=== PATIENT | male | born 1980 | race Caucasian/White ===

== ENCOUNTER 2020-05-01 07:20 | Outpatient (REF) | payer BC, SELFPAY | END 2020-05-01 07:21 | disposition home or self-care (01) | LOC: HO.LAB 07:20 | PROVIDERS: Visit Provider Internal Medicine | DX: Z20.822 Contact with and (suspected) exposure to COVID-19 (principal) | CPT/HCPCS: 36415; C9803; U0003 ==

== ENCOUNTER 2020-05-20 07:12 | Outpatient (REF) | payer BC, SELFPAY | END 2020-05-20 07:13 | disposition home or self-care (01) | LOC: HO.LAB 07:12 | PROVIDERS: PCP Family Medicine; Visit Provider Internal Medicine | DX: Z20.822 Contact with and (suspected) exposure to COVID-19 (principal) | CPT/HCPCS: 36415; C9803; U0003; U0005 ==

== ENCOUNTER 2023-03-17 09:23 | Outpatient (AMB) | payer OTHER, BC, SELFPAY ==
--- NOTE | 2023-03-17 09:26 | AM.OFFWIN_ITS ---
Intake Vital Signs 03/17/23 09:27 Height 5 ft 9 in Weight 169 lb BMI 25.0 BP 122/80 Blood Pressure Location Rt brachial Position Sitting Pulse 78 Pulse Source Pulse Oximeter Temp 97.8 F Temp Source Temporal Artery Scan Pulse Oximetry (%) 98 Intake Visit Reasons: EP WC Fell RT side/Shoulder/Elbow/back Intake Note: pt is here for c.o right side shoulder pain, elbow pain due to fall at work yesterday Patient Tobacco Use Status: Never used Tobacco Allergies No Known Allergies Allergy (Verified 03/17/23 09:29) Do you need a note to return to daycare/school/sports/work: Yes HPI HPI Comments History of Present Illness Details 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 PFSH Social History Patient Tobacco Use Status: Never used Tobacco Review of Systems Const Reports body aches, Denies chills and Denies fever(s) Eyes Denies change in vision ENT Denies dizziness and Denies neck pain Card Denies chest pain, Denies chest pain with activity and Denies dyspnea Resp Denies cough and Denies dyspnea GI Denies abdominal pain Musc Denies abnormal gait, Reports back pain (upper back/R shoulder), Reports myalgias, Reports joint swelling (R elbow), Denies neck pain, Denies numbness and Denies tingling Skin/Breast Reports change in pigmentation (Bruise R gluteal region. Abrasion R posterior ribs and R elbow) and Reports unusual bruising (Bruise to R elbow) Neuro Denies abnormal gait, Denies confusion, Denies dizziness, Denies numbness, Denies tingling and Reports other (No HT or LOC) Psych Denies confusion Physical Exam Vital Signs: Last Vital Signs Temp 97.8 F 03/17/23 09:27 Pulse 78 03/17/23 09:27 BP 122/80 03/17/23 09:27 Pulse Ox 98 03/17/23 09:27 BMI result Body Mass Index 25.0 General: Non-toxic, NAD. Speaking full sentences. Skin: Warm dry throughout. R glute lateral aspect has raised approx 3cm x 2cm blue/green hematoma. Slightly tender to palpation. No induration. R elbow + scabbed abrasion without surrounding erythema, bleeding or discharge. R posterior back along rib approx 10 he has small abrasion without ecchymosis, erythema discharge or bleeding Eye: EOMI Neck: No c-spine tenderness. + tenderness to palpation R trapezius muscle Respiratory: CTA bilaterally. No wheezes, rales or rhonchi Cardiac: RRR. No murmur MSK: No bon tenderness to palpation midline spine. + R trapezius tenderness to palpation. No bony tenderness R clavicle, shoulder or proximal humerus, R wrist or R rip. + tenderness to palpation R olecranon with full ROM R elbow intact. Neurology: A/O. No aphasia or facial droop. Gait without abnormality Psych: Good mood and affect Const General: No confusion Orientation/consciousness: No confusion Neuro General: No confusion Assessment & Plan Assessment & Plan (1) Elbow contusion: Code(s): S50.00XA - Contusion of unspecified elbow, initial encounter Qualifiers: Encounter type: initial encounter Laterality: right Qualified Code(s): S50.01XA - Contusion of right elbow, initial encounter Plan Patient seen and evaluated Lungs CTA and no rib tenderness or step off palpated Vital stable. Xray R elbow ordered No sign of cellulitis on exam I viewed xray as negative.Discussed results with pt. He will use ice TID x 20 min to R elbow Rest, tylenol/motrin prn F/u with workman comp Pt expressed verbal understanding at time of d/c and all questions answered Orders: Orders XR elbow RT min 3V Today S50.00XA - Contusion of unspecified elbow, initial encounter Coding Level of Care Code Est Pt Level 3 (97105) Diagnoses Contusion of right elbow, initial encounter S50.01XA Encounter type: initial encounter Laterality: right
[2023-03-17 09:27] VITALS: BP 122/80; PULSE 78; TEMP 36.6; O2SAT 98; BMI 25.0
== END 2023-03-17 10:23 | disposition home or self-care (01) ==
PROVIDERS: PCP Family Medicine; Visit Provider Physician Assistant
DX: S50.01XA Contusion of right elbow, initial encounter (principal)
CPT/HCPCS: 99213

== ENCOUNTER 2023-03-17 09:45 | Outpatient (REF) | payer OTHER, BC, SELFPAY ==
--- NOTE | ~2023-03-17 | XR_ITS ---
EXAMINATION: XR ELBOW, RIGHT CLINICAL INFORMATION: Contusion of right elbow COMPARISON: None available. TECHNIQUE: AP, lateral, and oblique views of the right elbow. FINDINGS: The bones and soft tissues are normal. No fracture or joint effusion. Alignment is anatomic. Joint spaces are maintained. XR/XR elbow RT min 3V IMPRESSION: Normal right elbow.
== END 2023-03-17 09:46 | disposition home or self-care (01) ==
LOC: HO.HMGCX 09:45
PROVIDERS: Visit Provider Physician Assistant
DX: S50.01XA Contusion of right elbow, initial encounter (principal)
CPT/HCPCS: 73080

== ENCOUNTER 2023-05-07 11:48 | Outpatient (AMB) | payer OTHER, BC, SELFPAY ==
[2023-05-07 13:18] VITALS: BP 120/80; PULSE 74; O2SAT 98; BMI 25.2
--- NOTE | 2023-05-07 13:18 | AM.OFFWIN_ITS ---
Intake Vital Signs 05/07/23 13:18 Height 5 ft 9 in Weight 171 lb BMI 25.2 BP 120/80 Blood Pressure Location Lt brachial Position Sitting Pulse 74 Pulse Source Pulse Oximeter Pulse Oximetry (%) 98 Oxygen Delivery Method Room Air Intake Visit Reasons: EP Clearance for work [phone] Intake Note: pt is here today for clearance for work Patient Tobacco Use Status: Never used Tobacco Allergies No Known Allergies Allergy (Verified 05/07/23 13:27) Do you need a note to return to daycare/school/sports/work: No HPI HPI Comments History of Present Illness Details This is a 43-year-old male who presented to the walk-in clinic requesting work clearance. He was evaluated here on 03/17/2023 and he was diagnosed with a contusion of his right elbow. Patient was placed on light duty at that time. Patient presenting today requesting clearance to return to full duty. He has no persistent right elbow pain, swelling, or ecchymosis. He has full range of motion of his right elbow. [facility] Social History Patient Tobacco Use Status: Never used Tobacco Review of Systems Const All systems reviewed & are unremarkable except as noted in HPI and below Reports no additional complaints Eyes Reports no additional complaints ENT Reports no additional complaints Card Reports no additional complaints Resp Reports no additional complaints GI Reports no additional complaints Reports no additional complaints Musc Reports no additional complaints Skin/Breast Reports system reviewed and no additional complaints, except as documented Neuro Reports no additional complaints Psych Reports no additional complaints Endo Reports no additional complaints Dar/Lymph Reports no additional complaints Aller/Immun Reports no additional complaints Physical Exam Vital Signs: Last Vital Signs Pulse 74 05/07/23 13:18 BP 120/80 05/07/23 13:18 Pulse Ox 98 05/07/23 13:18 Oxygen Delivery Method Room Air 05/07/23 13:18 BMI result Body Mass Index 25.2 Const Other: Vital signs reviewed. Constitutional: Non-toxic appearing. No acute distress. Well-developed and well-nourished. HEENT: Normocephalic and atraumatic. Skin: Warm and dry. No rashes or lesions noted. Neck: Full and painless range of motion. No cervical lymphadenopathy. Cardio: Regular rate and rhythm. No murmurs, gallops, or rubs. No lower extremity edema. No JVD. Pulmonary: No respiratory distress. No accessory muscle usage. Clear to auscultation bilaterally without wheezing, crackles, or rhonchi. Gastrointestinal: Soft, nontender, and nondistended in all 4 quadrants. Normoactive bowel sounds in all 4 quadrants. Genitourinary: No CVA tenderness. Musculoskeletal: Normal range of motion in joints throughout the body. No deformity or other signs of injury. Full and painless range of motion of the right elbow. No swelling, erythema, ecchymosis, or tenderness to palpation of the right elbow. Neuro: Alert and oriented x4. Cranial nerves 2-12 grossly intact. No focal deficits appreciated. Psych: Normal mood and affect. Assessment & Plan Assessment & Plan (1) Elbow contusion: Code(s): S50.00XA - Contusion of unspecified elbow, initial encounter Qualifiers: Encounter type: initial encounter Laterality: right Qualified Code(s): S50.01XA - Contusion of right elbow, initial encounter Plan: This is a 43-year-old male who was diagnosed with an elbow contusion in 02/2023 and placed on light duty at work who presented to the walk-in clinic today requesting clearance for full duty at work. On physical examination, the patient has full and painless range of motion of his right elbow and he has no swelling, tenderness to palpation, ecchymosis, or erythema of the right elbow. The patient was given a work note that he can perform his full work duties. Patient was advised to follow-up here for any worsening or persistent symptoms. The patient verbalizes understanding and he is very appreciative of our help. Coding Level of Care Code Est Pt Level 3 (69880) Diagnoses Contusion of right elbow, initial encounter S50.01XA Encounter type: initial encounter Laterality: right
== END 2023-05-07 14:15 | disposition home or self-care (01) ==
PROVIDERS: PCP Family Medicine; Visit Provider Physician Assistant Medical
DX: S50.01XA Contusion of right elbow, initial encounter (principal)
CPT/HCPCS: 99213

== ENCOUNTER 2024-05-05 13:31 | Outpatient (AMB) | payer OTHER, BC, SELFPAY ==
--- NOTE | 2024-05-05 14:16 | MHC.PC.OV ---
Vital Signs 05/05/24 14:26 Height 5 ft 9 in Weight 186 lb 8 oz BMI 27.5 BP 120/60 Blood Pressure Location Rt brachial Position Sitting Respiration 16 Pulse 98 Pulse Source Pulse Oximeter Temp 98.1 F Temp Source Oral Pulse Oximetry (%) 98 Oxygen Delivery Method Room Air Intake Visit Reasons: Gasto issues Intake Note: establish care Allergies No Known Allergies Allergy (Verified 05/05/24 14:18) Medication List - Last Reconciled 05/05/24 by Eben Ross MD No Known Home Meds Tobacco use date assessed: 05/05/24 Dental Screening Dental Screen Date: 05/05/24 Did you have a dental visit in the last 12 months?: Yes Did you have a dental problem in the last 6 months where you did not have access to dental care?: No HPI Gasto issues HPI Details New Patient? ?? Prior PCP:? Cody Last office visit/CPE:? 2019 Acute issue(s):? Epigastric?discomfort?with?certain?foods,?especially?mentioned?coffee.??Improves?with?omeprazole?but?he?is?out?of?this. History?of?lap?band ?? PMHx:? Hx of Kidney stones. Hx of HTN & DM prior to Lap Band SurgHx:? Lap Band 2010. L knee repair after trauma FHx:? Dad: HTN. SocHx: Nonsmoker, EtOH none. No drugs PFSH Medical History (Updated 05/05/24 @ 15:05 by Danie Ann) Hx of diabetes mellitus History of high blood pressure Surgical History (Updated 05/05/24 @ 14:23 by Eduar Pitt CMA) LAP-BAND surgery status Family History (Updated 05/05/24 @ 14:25 by Eduar Pitt CMA) Maternal Grandmother Diabetes Father High blood pressure Social History (Updated 05/05/24 @ 14:25 by Eduar Pitt CMA) Housing: House Patient Tobacco Use Status: Never used Tobacco e-Cigarette/Vaping Use: Never Used Second Hand Smoke Exposure: No Use of substances other than those prescribed or required for medical reasons: No service: No Current occupational status: employed 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 1. Little interest or pleasure in doing things: not at all 2. Feeling down, depressed, or hopeless: not at all 3. Trouble falling or staying asleep, or sleeping too much: several days 4. Feeling tired or having little energy: several days 5. Poor appetite or overeating: several days 6. Feeling bad about yourself - or that you are a failure or have let yourself or your family down: not at all 7. Trouble concentrating on things, such as reading the newspaper or watching television: not at all 8. Moving or speaking so slowly that other people could have noticed. Or the opposite - being so fidgety or restless that you have been moving around a lot more than usual: not at all 9. Thoughts that you would be better off or of hurting yourself in some way: not at all Total score: 3 Depression Screening Interpretation: Negative Depression Screening Done: Yes [id number] - PHQ-9 Billing: Yes Source: Developed by Drs. Ricky Dela Cruz, Lian Clark, Tyrese Rosario and colleagues, with an educational caden from [employer]. Thrive Questionnaire Date Thrive assessed: 05/05/24 I am a: Patient What is your living situation today?: I have a steady place to live Within the past 12 months, did the food you bought not last and you didn't have the money to get more?: Never true Within the past 12 months, did you worry whether your food would run out before you got money to buy more?: Never true Do you have trouble paying for medicines?: No Do you have trouble getting transportation to medical appointments?: No Do you have trouble paying your heating and electricity bill?: No Do you have trouble taking care of your child, family member or friend?: No Do you have trouble with day-to-day activities such as bathing, preparing meals, shopping, managing finances, etc.?: No Are you currently unemployed and looking for a job?: No Are you interested in more education?: No Please select the resources that you would like help with: None Currently or been in a relationship where the following occur: No concerns reported THRIVE Score: 0 AUDIT C Alcohol Use Questionnaire (AUDIT-C) 1. How often do you have a drink containing alcohol?: Never 2. How many drinks containing alcohol do you have on a typical day when you are drinking?: 1 or 2 3. How often do you have six or more drinks on one occasion?: Less than monthly Total Score: 1 ROSANA-7 AMB Questionnaire ROSANA-7 Date ROSANA - 7 assessed: 05/05/24 Feeling nervous, anxious, or on edge: 0 = Not at all Not being able to stop or control worryin = Not at all Worrying too much about different things: 0 = Not at all Trouble relaxin = Not at all Being so restless that it is hard to sit still: 0 = Not at all Becoming easily annoyed or irritable: 1 = Several days Feeling afraid as if something awful might happen: 0 = Not at all Total ROSANA-7 score (0-4 normal; 5-9 mild; 10-14 moderate; 15-21 severe): 1 Source: Developed by Drs. Ricky Dela Cruz, Lian Clark, Tyrese Rosario and colleagues, with an educational caden from [employer]. ROSANA-7 Assessment Billing ROSANA-7 Assessment Tool: ROSANA-7 Assessment 07328 Review of Systems Const Denies chills, Denies fatigue, Denies fever(s), Denies headache(s) and Denies weakness ENT Denies dizziness and Denies headache(s) Card Denies chest pain, Denies lightheadedness, Denies dyspnea and Denies other (Palpitations) Resp Denies cough, Denies dyspnea, Denies wheezing and Denies other ( shortness of breath) Musc Denies numbness and Denies tingling Neuro Denies dizziness, Denies headache(s), Denies numbness, Denies tingling, Denies paresthesias and Denies weakness Psych Denies anxiety and Denies depression Endo Denies fatigue Aller/Immun Denies wheezing Physical exam (Primary Care) Vital Signs: Last Vital Signs Temp 98.1 F 05/05/24 14:26 Pulse 98 05/05/24 14:26 Resp 16 05/05/24 14:26 BP 120/60 05/05/24 14:26 Pulse Ox 98 05/05/24 14:26 Oxygen Delivery Method Room Air 05/05/24 14:26 BMI result Body Mass Index 27.5 Tobacco/Smoking Status: Tobacco use Status Tobacco use date assessed 05/05/24 05/05/24 14:29 Patient Tobacco Use Status Never used Tobacco 05/05/24 14:25 e-Cigarette/Vaping Use Never Used 05/05/24 14:29 PHQ-9: PHQ-9 Score PHQ-9: Total score 3 05/05/24 14:47 Depression Screening Interpretation: Negative Thrive Assessment: Date of Thrive Assessment Date Thrive assessed 05/05/24 05/05/24 14:16 Currently or been in a relationship where the following occur: No concerns reported Const General: no acute distress and well developed Nutritional Appearance: well nourished Orientation/consciousness: patient oriented x3 HENMT Head: Yes normocephalic and Yes atraumatic Eyes General: appearance normal, both eyes and all related structures Pupils: Equal, round and reactive pupils present EOM: EOMs intact bilaterally Resp Effort & Inspection: normal respiratory effort Auscultation: clear to auscultation bilaterally Cardio Rate: regular rate Rhythm: regular rhythm Heart sounds: S1 normal heart sound present, S2 normal heart sound present, no gallops, no murmurs and no rubs Neuro General: patient oriented x3 and gait normal Cranial nerves: Yes Equal, round and reactive pupils present Psych Affect: normal affect Coding Level of Care Code New Pt Level 3 (54482) Diagnoses Epigastric discomfort R10.13 Hx of diabetes mellitus Z86.39 History of high blood pressure Z86.79 Screening for colon cancer Z12.11 Laboratory exam ordered as part of routine general medical examination Z00.00 Additional Codes ROSANA-7 Assessment Billing - ROSANA-7 Assessment Tool: ROSANA-7 Assessment 85475 ([id number]) PHQ-9 - 95574 - PHQ-9 Billing: Yes ([id number]) Assessment & Plan Assessment & Plan (1) Epigastric discomfort: Code(s): R10.13 - Epigastric pain Category: Medical Plan: Epigastric?discomfort?associated?with?eating?and?particular?foods?such?as?coffee He?does?have?history?of?lap?band He?has?had?improvement?with?omeprazole Will?resume?omeprazole Referred?to?GI Will?also?check?H?pylori?test (2) Hx of diabetes mellitus: Code(s): Z86.39 - Personal history of other endocrine, nutritional and metabolic disease Category: Medical Plan: History?of?diabetes?prior?to?lap?band?procedure. A1c?today?5.4%?which?is?in?normal?range (3) History of high blood pressure: Code(s): Z86.79 - Personal history of other diseases of the circulatory system Category: Medical Plan: History?of?high?blood?pressure?prior?to?lap?band?procedure?and?weight?loss Blood?pressure?today?is?fine (4) Screening for colon cancer: Code(s): Z12.11 - Encounter for screening for malignant neoplasm of colon Category: Medical Plan: Patient?is?44?and?due?for?colon?cancer?screening Referred?to?GI?as?above (5) Laboratory exam ordered as part of routine general medical examination: Code(s): Z00.00 - Encounter for general adult medical examination without abnormal findings Category: Medical Plan: Check labs Orders: Orders Complete Blood Count Auto Diff Today Z00.00 - Encounter for general adult medical examination without abnormal findings Microalbumin, Random (w Creat) Today I10 - Essential (primary) hypertension Comprehensive [place]. Panel Fast Today Z00.00 - Encounter for general adult medical examination without abnormal findings Prostate Specific Antigen Scr Today Z12.5 - Encounter for screening for malignant neoplasm of prostate Lipid Panel Today Z00.00 - Encounter for general adult medical examination without abnormal findings TSH reflex Free T4 Today Z00.00 - Encounter for general adult medical examination without abnormal findings UA and rflx microscopic Today Z00.00 - Encounter for general adult medical examination without abnormal findings H pylori Ag Stool Today R10.13 - Epigastric pain Referrals Gastroenterology Referral R10.13 - Epigastric pain, Z12.11 - Encounter for screening for malignant neoplasm of colon Medications: New omeprazole 20 mg PO DAILY 90 days 90 caps 2RF
[2024-05-05 14:26] VITALS: BP 120/60; PULSE 98; RESP 16; TEMP 36.7; O2SAT 98; BMI 27.5
== END 2024-05-05 16:23 | disposition home or self-care (01) ==
PROVIDERS: PCP Family Medicine; Visit Provider Family Medicine
DX: R10.13 Epigastric pain (principal); Z86.39 Personal history of other endocrine, nutritional and metabolic disease; Z86.79 Personal history of other diseases of the circulatory system; Z12.11 Encounter for screening for malignant neoplasm of colon; Z00.00 Encounter for general adult medical examination without abnormal findings

== ENCOUNTER → 2024-05-05 13:31 | Outpatient (BNVA) | payer OTHER, BC, SELFPAY | PROVIDERS: PCP Family Medicine; Visit Provider Family Medicine | DX: Z00.00 Encounter for general adult medical examination without abnormal findings (principal); R10.13 Epigastric pain; Z86.39 Personal history of other endocrine, nutritional and metabolic disease; Z86.79 Personal history of other diseases of the circulatory system | CPT/HCPCS: 83036; 96127; 99202 ==

== ENCOUNTER 2024-05-22 10:41 | Outpatient (REF) | payer BC, OTHER, SELFPAY ==
[2024-05-22 10:56] LABS: MANUAL DIFF FLAG NO
[2024-05-22 11:11] LABS: Basophils Percent Auto 0.5 % (0-2); Eosinophils Absolute Auto 0.1 X10*3/uL (0.0-0.4); Eosinophils Percent Auto 1.3 % (0-4); Hematocrit 34.2 % (42.0-52.0); Hemoglobin 11.5 g/dl (14.0-18.0); Imm Gran Abs Auto 0.02 X10*3/uL (0.00-0.03); Imm Gran Pct Auto 0.3 % (0.0-0.4); Lymphocytes Absolute Auto 2.1 X10*3/uL (1.2-4.9); Lymphocytes Percent Auto 26.1 % (20-40); Mean Corpuscular HGB Conc 33.6 g/dl (31.0-36.0); Mean Corpuscular Hemoglobin 28.1 pg (27.0-33.0); Mean Corpuscular Volume 83.6 fL (80.0-98.0); Mean Platelet Volume 10.4 fL (9.4-12.4); Monocytes Absolute Auto 0.7 X10*3/uL (0.1-1.2); Monocytes Percent Auto 8.3 % (2-11); Neutrophils Absolute Auto 5.1 x10*3/uL (2.0-8.3); Neutrophils Percent Auto 63.5 % (45-73); Platelet Count 213 X10*3/uL (160-400); Red Blood Count 4.09 X10*6/uL (4.60-5.80); Red Cell Distribution Width 14.1 % (11.0-16.0); White Blood Count 7.9 X10*3/uL (4.8-10.8)
[2024-05-22 12:08] LABS: Appearance Urine Clear; Color Urine Yellow; Glucose Urine UA Negative (Negative); Leukocyte Esterase Urine Negative (Negative); Nitrite Urine Negative (Negative); Urine Blood Negative (Negative); Urine Ketones Negative (Negative); Urine Protein Negative (Neg-Trace)
[2024-05-22 12:31] LABS: Prostate Specific Antigen Scr 0.65 ng/mL (<0.05-4.0)
[2024-05-22 12:40] LABS: Alanine Aminotransferase 23 U/L (0-40); Albumin Level 4.1 g/dL (3.5-5.0); Alkaline Phosphatase 45 U/L (39-117); Anion Gap 8 (12-20); Aspartate Amino Transferase 30 U/L (5-37); Bilirubin Total 0.4 mg/dL (0.0-1.0); Blood Urea Nitrogen 19 mg/dL (9-16); Calcium 9.5 mg/dL (8.4-10.2); Carbon Dioxide 26 mmol/L (22-29); Chloride 110 mmol/L (96-108); Cholesterol 173 mg/dL (<200); Estimated Glomerular Filt Rate > 60; Glucose Fasting 97 mg/dL (60-99); HDL Cholesterol 53 mg/dL (>40); LDL Cholesterol Calculated 111 mg/dL (<100); Sodium 140 mmol/L (135-145); Total Protein 7.5 g/dL (6.5-8.0); Triglycerides 49 mg/dL (<150)
[2024-05-22 12:41] LABS: TSH reflex Free T4 1.12 uIU/mL (0.32-4.0)
[2024-05-22 12:52] LABS: Creatinine Urine 135.38 mg/dL; Microalbumin Urine < 5.0 mg/L
== END 2024-05-22 10:42 | disposition home or self-care (01) ==
LOC: HO.LAB 10:41
PROVIDERS: PCP Family Medicine; Visit Provider Family Medicine
DX: Z00.00 Encounter for general adult medical examination without abnormal findings (principal); I10 Essential (primary) hypertension; R10.13 Epigastric pain; Z12.5 Encounter for screening for malignant neoplasm of prostate
CPT/HCPCS: 36415; 80053; 80061; 81003; 82043; 82570; 84153; 84443; 85025; 87338

== ENCOUNTER 2024-07-03 15:37 | Outpatient (AMB) | payer BC, SELFPAY ==
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
[2024-07-03 15:47] VITALS: BP 124/80; PULSE 76; O2SAT 100
== END 2024-07-03 16:39 | disposition home or self-care (01) ==
PROVIDERS: PCP Family Medicine; Visit Provider Nurse Practitioner Family
DX: J06.9 Acute upper respiratory infection, unspecified (principal); K21.9 Gastro-esophageal reflux disease without esophagitis; M94.0 Chondrocostal junction syndrome [Tietze]

== ENCOUNTER 2024-07-03 15:37 | Outpatient (REF) | payer BC, SELFPAY ==
--- NOTE | ~2024-07-03 | XR_ITS ---
CLINICAL HISTORY: Chest pain, shortness of breath. 2 view chest x-ray Comparison: CT/AK/SR - CHEST WITHOUT CONTRAST [id number] - 11/10/19 21:58 EDT Findings: The lungs are clear. Normal size heart. No acute fracture. IMPRESSION: 1. No acute findings. This document has been electronically signed by: Linda Greer MD on 07/03/2024 17:29:18
[2024-07-04 10:47] LABS: Influenza A PCR NEGATIVE (Negative); Influenza B PCR NEGATIVE (Negative); Resp Syncy Virus RNA Qual PCR NEGATIVE (Negative); SARS COV2 PCR INHOUSE NEGATIVE (Negative)
== END 2024-07-03 15:38 | disposition home or self-care (01) ==
LOC: HO.HMGCX 15:37
PROVIDERS: PCP Family Medicine; Visit Provider Nurse Practitioner Family
DX: J06.9 Acute upper respiratory infection, unspecified (principal); K21.9 Gastro-esophageal reflux disease without esophagitis; M94.0 Chondrocostal junction syndrome [Tietze]
CPT/HCPCS: 0241U; 71046

== ENCOUNTER → 2024-07-03 16:05 | Outpatient (BNV) | payer BC, SELFPAY | PROVIDERS: PCP Family Medicine; Visit Provider Radiology Diagnostic Radiology | DX: R07.9 Chest pain, unspecified (principal); R06.02 Shortness of breath | CPT/HCPCS: 71046 ==

== ENCOUNTER 2024-07-03 16:16 | Outpatient (REF) | payer BC, SELFPAY | END 2024-07-03 16:17 | disposition home or self-care (01) | LOC: HO.LAB 16:16 | PROVIDERS: Visit Provider Nurse Practitioner Family | DX: Z13.89 Encounter for screening for other disorder (principal) ==

== ENCOUNTER 2024-07-06 16:32 | Emergency (ER) | payer BC, SELFPAY ==
--- NOTE | ~2024-07-06 | XR_ITS ---
CLINICAL HISTORY: CP 2 view chest x-ray Comparison: CR - XR CHEST 2V - 07/03/24 16:15 EDT Findings: No consolidation or effusion. Heart size is normal. No acute fracture. IMPRESSION: 1. No acute findings. This document has been electronically signed by: Wagner España MD on 07/06/2024 18:09:52
--- NOTE | 2024-07-06 16:40 | ECG_ITS ---
Test Reason : chest pain Blood Pressure : */* mmHG Vent. Rate : 74 BPM Atrial Rate : 74 BPM P-R Int : 110 ms QRS Dur : 78 ms QT Int : 370 ms P-R-T Axes : 75 0 27 degrees QTcB Int : 410 ms Sinus rhythm with short IA Otherwise normal ECG No previous ECGs available Referred By: Crystal Ellis Electronically Signed By: Bunny Miles
[2024-07-06 17:16] VITALS: BP 118/58; PULSE 75; RESP 16; TEMP 36.3; O2SAT 99; BMI 28.6
--- NOTE | 2024-07-06 17:18 | ED.CHESTPAIN ---
HPI - Chest Pain General Chief Complaint: Chest Pain Stated Complaint: chest,back pain Time Seen by Provider: 07/06/24 20:52 Source: patient and old records reviewed Mode of arrival: ambulatory Limitations: no limitations History of Present Illness ED Provider: KEYANA DIANE narrative: 44 yo male s/p lap band about 12 years ago no issues, GERD, chest wall pain, he reports heavy lifting after work 1 week ago now pain with touching chest, moving, deep breaths - he has no recent travel or procedures, no n/v. No dyspnea. Has never had a blood clot before. No URI symptoms. MD complaint: chest discomfort Onset (ago): day(s) (7) Timing of current episode: episodic Prior episodes: No Onset: during rest Pain location: substernal Pain radiation: none Severity: moderate Quality: aching Relieving factors: nothing Exacerbating factors: inspiration, palpation and movement Context: trauma/injury Treatment prior to arrival: none Related Data Previous Rx's ?Medication ?Instructions ?Recorded omeprazole 20 mg capsule,delayed 20 mg PO DAILY 90 days #90 caps 05/05/24 release prednisone 20 mg tablet 20 mg PO DAILY #5 tabs 07/03/24 cyclobenzaprine 10 mg tablet 10 mg PO TID PRN muscle spasm #20 07/06/24 tabs Allergies Allergy/AdvReac Type Severity Reaction Status Date / Time No Known Allergies Allergy Verified 07/06/24 17:16 Review of Systems Review of Systems: Constitutional : No Weight loss, No Fever, No Chills ENT/Mouth : No sore throat, No Rhinorrhea Eyes: No Eye Pain, No Swelling Cardiovascular : pos Chest Pain, no SOB, no Dyspnea on Exertion, No Orthopnea, No Edema, No Palpitations Respiratory : No Cough, No Sputum Gastrointestinal : no Nausea, No Vomiting, No Diarrhea, No abdominal Pain, No Hematochezia, No Melena Genitourinary : No Dysuria, No Urinary Frequency Musculoskeletal : No joint pain, No Myalgias, No Joint Swelling Skin : No Skin Lesions, No rash Neuro : No Weakness, No Numbness, No Dizziness, No Headache All other systems reviewed and are negative PMFSH Past Medical History Attestation statement: The following information was validated with the patient. Source: old records reviewed Medical History Acute costochondritis GERD (gastroesophageal reflux disease) Acute respiratory disease Burn of chest wall Hx of diabetes mellitus History of high blood pressure Surgical History LAP-BAND surgery status Family History Family History (Updated 05/05/24 @ 14:25 by JEFFREY Muir) Maternal Grandmother Diabetes Father High blood pressure Social History Social History Housing: House Patient Tobacco Use Status: Never used Tobacco Smoked in Last 30 Days: No e-Cigarette/Vaping Use: Never Used Second Hand Smoke Exposure: No Use of substances other than those prescribed or required for medical reasons: No Advance Directives: Yes Advance Directives Information Provided: Yes Advance Directives on File: No service: No Current occupational status: employed 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 Oriented X3. No acute distress. Eyes: Pupils equal, round and reactive to light. ENT: Pharynx normal. Neck: Normal inspection. Neck supple. CVS: Normal heart rate and rhythm. Pulses normal. Chest: chest wall pain reproduceable to palpation Respiratory: No respiratory distress. Breath sounds normal. Abdomen: Soft and nontender. Skin: Skin warm and dry. Normal skin color. Normal skin turgor. Extremities: No lower extremity edema. No calf ttp Neuro: Oriented X 3. No motor deficit. No sensory deficit. CN2-12 intact Course Course Course Narrative: This is an RME: Additional HPI, ROS, PE not included below will be deferred to primary provider. RME assessment and note performed by: Crystal Ellis PA-C This is a [id number]-male who presents to the ER with complaints of chest pain x 1 week. Reports that the chest pain is pain and burning and aching, which occurs at random and when he takes deep breaths. +chills. Was seen at urgent care 3 days ago and was d/c on prednisone > has not helped. Yesterday he had an episode of chest pain where he had to candy puller and he vomited. No recent surgeries. Father CHF in 50s. Plan: Labs, EKG, CXR Medical Decision Making Medical Decision Making [facility] Narrative: 44 yo male s/p lap band about 12 years ago no issues, GERD, chest wall pain here with c/o 7 days of chest wall pain after lifting at work - he has no URI symptoms no nausea, dizziness, dyspnea he has no VTE risk factors but it is pleuritic but also reproduceable I suspect more of a costochondritis picture - doubt dissection given 1 week - will obtain labs, CXR, ddimer, trop if negative stable for DC Differential Diagnosis Differential Diagnoses: The differential diagnosis associated with the presentation includes atypical chest pain, low prob PE, costochondritis Admission/Observation Consideration of admission/observation: Escalation of care including admission/observation considered work up negative stable for DC Lab Data [facility] Lab Attestation statement: I reviewed the patient's lab results. 07/06/24 17:47 07/06/24 17:47 Labs: Lab Results 07/06/24 07/06/24 Range/Units 17:47 21:21 WBC 8.7 (4.8-10.8) X10*3/uL RBC 3.76 L (4.60-5.80) X10*6/uL Hgb 10.6 L (14.0-18.0) g/dl Hct 30.7 L (42.0-52.0) % MCV 81.6 (80.0-98.0) fL MCH 28.2 (27.0-33.0) pg MCHC 34.5 (31.0-36.0) g/dl RDW 14.4 (11.0-16.0) % Plt Count 241 (160-400) X10*3/uL MPV 9.8 (9.4-12.4) fL Immature Gran % (Auto) 0.5 H (0.0-0.4) % Neut % (Auto) 60.0 (45-73) % Lymph % (Auto) 28.1 (20-40) % Sampson % (Auto) 9.6 (2-11) % Eos % (Auto) 1.5 (0-4) % Baso % (Auto) 0.3 (0-2) % Lymph # (Auto) 2.4 (1.2-4.9) X10*3/uL Sampson # (Auto) 0.8 (0.1-1.2) X10*3/uL Eos # (Auto) 0.1 (0.0-0.4) X10*3/uL Baso # (Auto) 0.0 (0.0-0.2) X10*3/uL Abs Immat Gran (auto) 0.04 H (0.00-0.03) X10*3/uL Absolute Neuts (auto) 5.2 (2.0-8.3) x10*3/uL Absolute Nucleated RBC 0.000 (0.0-0.012) X10*3/uL Nucleated RBC % (auto) 0.0 (0.0-0.2) /100WBC D-Dimer High Sensitivty < 150 NG/ML Sodium 140 (135-145) mmol/L Potassium 3.9 (3.3-5.1) mmol/L Chloride 110 H (96-108) mmol/L Carbon Dioxide 26 (22-29) mmol/L Anion Gap 8 L (12-20) BUN 20 H (9-16) mg/dL Creatinine 0.97 (0.5-1.4) mg/dL Estim Creat Clear Calc 102.2 Estimated GFR > 60 Random Glucose 101 (60-115) mg/dL Calcium 8.2 L D (8.4-10.2) mg/dL Magnesium 2.1 (1.6-2.6) mg/dL Total Bilirubin 0.2 (0.0-1.0) mg/dL Direct Bilirubin < 0.2 (0.0-0.5) mg/dL AST 27 (5-37) U/L ALT 60 H (0-40) U/L Alkaline Phosphatase 49 (39-117) U/L Troponin I High Sens < 2.7 (<3.5-35.0) ng/L B-Natriuretic Peptide 16 (<100) pg/mL Total Protein 6.9 (6.5-8.0) g/dL Albumin 3.7 (3.5-5.0) g/dL Influenza Type A (PCR) NEGATIVE (Negative) Influenza Type B (PCR) NEGATIVE (Negative) RSV RNA Qual (PCR) NEGATIVE (Negative) SARS-CoV-2 RNA (RT-PCR) NEGATIVE (Negative) Independent Interpretation I performed an independent interpretation of an: EKG and Plain X-Ray (normal ) Interpretation: Rate: 74 Rhythm: NSR [place]: left Normal P waves. Normal JORGE. Normal QRS complex. ST T wave : inverted t waves V1, no KEATON qTC: 410 prior studies: no acute ischemia The study has been interpreted contemporaneously by me. . External Record Review External record reviewed: Outpatient record Prescription Management I considered prescription management with: Other Discharge Plan Discharge Clinical Impression: Acute chest wall pain Patient Disposition: Home, Self-Care Instructions: Chest Wall Pain (ED) Additional Instructions: heart tests of blood normal, EKG normal, chest xray normal negative blood clot test you do have anemia with has been chronic but your doctor should monitor - hemoglobin today 10.6 please return for worsening pain, dizziness, fainting, trouble breathing Prescriptions: New cyclobenzaprine 10 mg tablet 10 mg PO TID PRN (Reason: muscle spasm) Qty: 20 0RF No Action omeprazole 20 mg capsule,delayed release(DR/EC) 20 mg PO DAILY 90 Days Qty: 90 2RF prednisone 20 mg tablet 20 mg PO DAILY Qty: 5 0RF Stand Alone Forms: Work/School Release Interventions: ED Discharge Assessment Last Done: 07/06/24 22:02 Discharge Date/Time: 07/06/24 22:03 Print Language: Maori
[2024-07-06 17:52] LABS: MANUAL DIFF FLAG NO
[2024-07-06 17:54] LABS: Basophils Percent Auto 0.3 % (0-2); Eosinophils Absolute Auto 0.1 X10*3/uL (0.0-0.4); Eosinophils Percent Auto 1.5 % (0-4); Hematocrit 30.7 % (42.0-52.0); Hemoglobin 10.6 g/dl (14.0-18.0); Imm Gran Abs Auto 0.04 X10*3/uL (0.00-0.03); Imm Gran Pct Auto 0.5 % (0.0-0.4); Lymphocytes Absolute Auto 2.4 X10*3/uL (1.2-4.9); Lymphocytes Percent Auto 28.1 % (20-40); Mean Corpuscular HGB Conc 34.5 g/dl (31.0-36.0); Mean Corpuscular Hemoglobin 28.2 pg (27.0-33.0); Mean Corpuscular Volume 81.6 fL (80.0-98.0); Mean Platelet Volume 9.8 fL (9.4-12.4); Monocytes Absolute Auto 0.8 X10*3/uL (0.1-1.2); Monocytes Percent Auto 9.6 % (2-11); Neutrophils Absolute Auto 5.2 x10*3/uL (2.0-8.3); Platelet Count 241 X10*3/uL (160-400); Red Blood Count 3.76 X10*6/uL (4.60-5.80); Red Cell Distribution Width 14.4 % (11.0-16.0); White Blood Count 8.7 X10*3/uL (4.8-10.8)
[2024-07-06 18:09] LABS: Alanine Aminotransferase 60 U/L (0-40); Albumin Level 3.7 g/dL (3.5-5.0); Alkaline Phosphatase 49 U/L (39-117); Anion Gap 8 (12-20); Aspartate Amino Transferase 27 U/L (5-37); Bilirubin Direct < 0.2 mg/dL (0.0-0.5); Bilirubin Total 0.2 mg/dL (0.0-1.0); Blood Urea Nitrogen 20 mg/dL (9-16); Calcium 8.2 mg/dL (8.4-10.2); Carbon Dioxide 26 mmol/L (22-29); Chloride 110 mmol/L (96-108); Creatinine Clr Calc Pharmacy 102.2; Estimated Glomerular Filt Rate > 60; Glucose Random 101 mg/dL (60-115); Magnesium 2.1 mg/dL (1.6-2.6); Potassium 3.9 mmol/L (3.3-5.1); Sodium 140 mmol/L (135-145); Total Protein 6.9 g/dL (6.5-8.0)
[2024-07-06 18:14] LABS: B Type Natriuretic Peptide 16 pg/mL (<100)
[2024-07-06 18:18] LABS: Troponin-I High Sensitivity < 2.7 ng/L (<3.5-35.0)
[2024-07-06 18:29] LABS: Influenza A PCR NEGATIVE (Negative); Influenza B PCR NEGATIVE (Negative); Resp Syncy Virus RNA Qual PCR NEGATIVE (Negative); SARS COV2 PCR INHOUSE NEGATIVE (Negative)
[2024-07-06 21:49] LABS: D Dimer High Sensitivity < 150 NG/ML
[2024-07-06 22:02] VITALS: BP 121/76; PULSE 70; RESP 16; TEMP 36.6; O2SAT 99
== END 2024-07-06 22:03 | disposition home or self-care (01) ==
PROVIDERS: Physician Assistant Medical; Emergency Provider Emergency Medicine; PCP Family Medicine
DX: R07.89 Other chest pain (principal); E11.9 Type 2 diabetes mellitus without complications; I10 Essential (primary) hypertension; Z03.818 Encounter for observation for suspected exposure to other biological agents ruled out; Z79.899 Other long term (current) drug therapy
CPT/HCPCS: 0241U; 36415; 71046; 80048; 80076; 83735; 83880; 84484; 85025; 85379; 93005; 99283; 99284

== ENCOUNTER → 2024-07-06 16:40 | Outpatient (BNV) | payer BC, SELFPAY | PROVIDERS: Emergency Provider Emergency Medicine; PCP Family Medicine; Visit Provider Internal Medicine Cardiovascular Disease | DX: R07.9 Chest pain, unspecified (principal) | CPT/HCPCS: 93010 ==

== ENCOUNTER → 2024-07-06 17:21 | Outpatient (BNV) | payer BC, SELFPAY | PROVIDERS: PCP Family Medicine; Visit Provider Radiology Diagnostic Radiology | DX: R07.9 Chest pain, unspecified (principal) | CPT/HCPCS: 71046 ==

== ENCOUNTER 2024-11-01 16:12 | Outpatient (AMB) | payer BC, SELFPAY ==
--- OUTSIDE RECORDS SUMMARY | 2024-11-01 16:15 | XMS_ITS | Patient Health Record ---
Author Organization [facility] Address [address] [place] [address] Care Team Providers Care Assembler [employer] Name Role Phone Eben Ross Primary Care Provider Ricky Monge Unavailable [phone] Allergies No Known Allergies Reason For Referral No Information Medications Medication SIG (Take, Route, Fr equency, Duration) Notes Start Date End Date Status Omeprazole 20 MG 1 Orally Once a day 09/15/2024 Active Immunizations Vaccine Route Administration Date Status Comme nts Influenza Unknown 09/15/2024 Refused Social History Tobacco Use: Social History Observation Description Date Details (start date - stop date) Never Smoker NA - NA Tobacco Control (Standard) Question Answer Notes Tobacco use: Nonsmoker AUDIT-C (Standard) Question Answer Notes Did you have a drink containing alcohol in the p ast year? No Points 0 Interpretation Negative Section Notes: Nonsmoker; no sig alcohol Problems Problem Type SNOMED Code ICD Code Onset Dates Problem Status W/U Status Risk Notes Problem Colon cancer screening (866956324) Colon cancer screening (Z12.11) Active confirmed Problem Abdominal bloating (320115102) Abdominal bloating (R14.0) Active confirmed Problem Anemia (426297967) Anemia (D64.9) Active confirmed Problem Gastroesophageal reflux disease (790354666) GERD (gastroesopha geal reflux disease) (K21.9) Active confirmed Problem Upper abdominal pain (33542601) Upper abdominal pain (R10.10) Active confirmed Vital Signs Temperature 98.2 degrees Fahrenheit 09/15/2024 Blood pressure diastolic 01 mm Hg 09/15/2024 Height 69 in 09/15/2024 Blood pressure systolic 001 mm Hg 09/15/2024 Weight 185 lbs 09/15/2024 BMI 27.32 kg/m2 09/15/2024 Procedures Procedure Date Ordered Date Performed Result Body Sit e UPPER GI ENDOSCOPY 09/15/2024 N/A COLONOSCOPY 09/15/2024 N/A Encounters Encounter Location Date Provider Diagnosis [facility] [address] [place] [address] 09/15/2024 Ricky Benjamin GERD (gastroesophageal reflux disease) K21.9 ; Colon cancer screening Z12.11 ; Abdominal bloating R14.0 ; Upper abdominal pain R10.10 and Anemia D64.9 Assessments Encounter Date Diagnosis (ICD Code) Assessment Notes Treatment Notes Treatment Clinical Notes Section Notes 09/15/2024 Colon cancer screening (ICD-10 - Z12.11) Overall, Neil appears very well. In regard to his symptoms of chronic gastroesophageal reflux with heartburn, this seems to be stable on his current regimen of omeprazole. He is not having any worrisome associated symptoms such as dysphagia or anorexia. However, I did recommend an upper endoscopy to rule out any component of Rae's esophagus, esophagitis, and/or a hiatal hernia given his fairly longstanding symptoms and daily need for PPI. We did review that avoiding things such as caffeine and carbonated beverages would help with decreasing his reflux symptoms as well. We also reviewed that a healthy diet and avoiding recurrent weight gain would help as well. I have also recommended a colonoscopy on the same day as the upper endoscopy for screening purposes. We did review the rationale for this in regard to colon cancer prevention. Full consent has been obtained from him for both procedures, including risks of bleeding and perforation. The procedures will be done with monitored anesthesia care. In regard to his symptoms of gas and bloating I did recommend he eliminate dairy with lactose from his diet to see if that would help things in case he has a component of lactose intolerance. I also advised him to minimize soda and other carbonated beverages. I did advise him to continue to use Gas-X for symptomatic relief as well. I did recommend an abdominal ultrasound to rule out symptomatic gallstones as a contributing factor to any abdominal discomfort as well. In regard to his anemia I shall check iron studies, B12 level, folate level, and celiac disease laboratories. If he is iron deficient then I will try to move the procedures to an earlier date. If he is not iron deficient then he may need further evaluation to rule out any type of hemoglobinopathy given the chronicity of the anemia, as well as a formal Hematology consultation.. I did advise Neil to contact me prior to the procedures if he has any problems or questions I can be of assistance with. Neil was very comfortable with this plan. Thank you again for allowing me to participate in Neil's care. I shall continue to keep you advised of his progress. 09/15/2024 GERD (gastroesopha geal reflux disease) (ICD-10 - K21.9) Overall, Neil appears very well. In regard to his symptoms of chronic gastroesophageal reflux with heartburn, this seems to be stable on his current regimen of omeprazole. He is not having any worrisome associated symptoms such as dysphagia or anorexia. However, I did recommend an upper endoscopy to rule out any component of Rae's esophagus, esophagitis, and/or a hiatal hernia given his fairly longstanding symptoms and daily need for PPI. We did review that avoiding things such as caffeine and carbonated beverages would help with decreasing his reflux symptoms as well. We also reviewed that a healthy diet and avoiding recurrent weight gain would help as well. I have also recommended a colonoscopy on the same day as the upper endoscopy for screening purposes. We did review the rationale for this in regard to colon cancer prevention. Full consent has been obtained from him for both procedures, including risks of bleeding and perforation. The procedures will be done with monitored anesthesia care. In regard to his symptoms of gas and bloating I did recommend he eliminate dairy with lactose from his diet to see if that would help things in case he has a component of lactose intolerance. I also advised him to minimize soda and other carbonated beverages. I did advise him to continue to use Gas-X for symptomatic relief as well. I did recommend an abdominal ultrasound to rule out symptomatic gallstones as a contributing factor to any abdominal discomfort as well. In regard to his anemia I shall check iron studies, B12 level, folate level, and celiac disease laboratories. If he is iron deficient then I will try to move the procedures to an earlier date. If he is not iron deficient then he may need further evaluation to rule out any type of hemoglobinopathy given the chronicity of the anemia, as well as a formal Hematology consultation.. I did advise Neil to contact me prior to the procedures if he has any problems or questions I can be of assistance with. Neil was very comfortable with this plan. Thank you again for allowing me to participate in Neil's care. I shall continue to keep you advised of his progress. 09/15/2024 Abdominal bloating (ICD-10 - R14.0) Switch to a Lactose-free milk and minimze soda to see if that helps with the bloating and gas. Overall, Neil appears very well. In regard to his symptoms of chronic gastroesophageal reflux with heartburn, this seems to be stable on his current regimen of omeprazole. He is not having any worrisome associated symptoms such as dysphagia or anorexia. However, I did recommend an upper endoscopy to rule out any component of Rae's esophagus, esophagitis, and/or a hiatal hernia given his fairly longstanding symptoms and daily need for PPI. We did review that avoiding things such as caffeine and carbonated beverages would help with decreasing his reflux symptoms as well. We also reviewed that a healthy diet and avoiding recurrent weight gain would help as well. I have also recommended a colonoscopy on the same day as the upper endoscopy for screening purposes. We did review the rationale for this in regard to colon cancer prevention. Full consent has been obtained from him for both procedures, including risks of bleeding and perforation. The procedures will be done with monitored anesthesia care. In regard to his symptoms of gas and bloating I did recommend he eliminate dairy with lactose from his diet to see if that would help things in case he has a component of lactose intolerance. I also advised him to minimize soda and other carbonated beverages. I did advise him to continue to use Gas-X for symptomatic relief as well. I did recommend an abdominal ultrasound to rule out symptomatic gallstones as a contributing factor to any abdominal discomfort as well. In regard to his anemia I shall check iron studies, B12 level, folate level, and celiac disease laboratories. If he is iron deficient then I will try to move the procedures to an earlier date. If he is not iron deficient then he may need further evaluation to rule out any type of hemoglobinopathy given the chronicity of the anemia, as well as a formal Hematology consultation.. I did advise Neil to contact me prior to the procedures if he has any problems or questions I can be of assistance with. Neil was very comfortable with this plan. Thank you again for allowing me to participate in Neil's care. I shall continue to keep you advised of his progress. 09/15/2024 Upper abdominal pain (ICD-10 - R10.10) Overall, Neil appears very well. In regard to his symptoms of chronic gastroesophageal reflux with heartburn, this seems to be stable on his current regimen of omeprazole. He is not having any worrisome associated symptoms such as dysphagia or anorexia. However, I did recommend an upper endoscopy to rule out any component of Rae's esophagus, esophagitis, and/or a hiatal hernia given his fairly longstanding symptoms and daily need for PPI. We did review that avoiding things such as caffeine and carbonated beverages would help with decreasing his reflux symptoms as well. We also reviewed that a healthy diet and avoiding recurrent weight gain would help as well. I have also recommended a colonoscopy on the same day as the upper endoscopy for screening purposes. We did review the rationale for this in regard to colon cancer prevention. Full consent has been obtained from him for both procedures, including risks of bleeding and perforation. The procedures will be done with monitored anesthesia care. In regard to his symptoms of gas and bloating I did recommend he eliminate dairy with lactose from his diet to see if that would help things in case he has a component of lactose intolerance. I also advised him to minimize soda and other carbonated beverages. I did advise him to continue to use Gas-X for symptomatic relief as well. I did recommend an abdominal ultrasound to rule out symptomatic gallstones as a contributing factor to any abdominal discomfort as well. In regard to his anemia I shall check iron studies, B12 level, folate level, and celiac disease laboratories. If he is iron deficient then I will try to move the procedures to an earlier date. If he is not iron deficient then he may need further evaluation to rule out any type of hemoglobinopathy given the chronicity of the anemia, as well as a formal Hematology consultation.. I did advise Neil to contact me prior to the procedures if he has any problems or questions I can be of assistance with. Neil was very comfortable with this plan. Thank you again for allowing me to participate in Neil's care. I shall continue to keep you advised of his progress. 09/15/2024 Anemia (ICD-10 - D64.9) Overall, Neil appears very well. In regard to his symptoms of chronic gastroesophageal reflux with heartburn, this seems to be stable on his current regimen of omeprazole. He is not having any worrisome associated symptoms such as dysphagia or anorexia. However, I did recommend an upper endoscopy to rule out any component of Rae's esophagus, esophagitis, and/or a hiatal hernia given his fairly longstanding symptoms and daily need for PPI. We did review that avoiding things such as caffeine and carbonated beverages would help with decreasing his reflux symptoms as well. We also reviewed that a healthy diet and avoiding recurrent weight gain would help as well. I have also recommended a colonoscopy on the same day as the upper endoscopy for screening purposes. We did review the rationale for this in regard to colon cancer prevention. Full consent has been obtained from him for both procedures, including risks of bleeding and perforation. The procedures will be done with monitored anesthesia care. In regard to his symptoms of gas and bloating I did recommend he eliminate dairy with lactose from his diet to see if that would help things in case he has a component of lactose intolerance. I also advised him to minimize soda and other carbonated beverages. I did advise him to continue to use Gas-X for symptomatic relief as well. I did recommend an abdominal ultrasound to rule out symptomatic gallstones as a contributing factor to any abdominal discomfort as well. In regard to his anemia I shall check iron studies, B12 level, folate level, and celiac disease laboratories. If he is iron deficient then I will try to move the procedures to an earlier date. If he is not iron deficient then he may need further evaluation to rule out any type of hemoglobinopathy given the chronicity of the anemia, as well as a formal Hematology consultation.. I did advise Neil to contact me prior to the procedures if he has any problems or questions I can be of assistance with. Neil was very comfortable with this plan. Thank you again for allowing me to participate in Neli's care. I shall continue to keep you advised of his progress. Plan Of Treatment Pending Test Test Name Order Date UPPER GI ENDOSCOPY 09/15/2024 COLONOSCOPY 09/15/2024 IRON + IBC (FE) 09/15/2024 CBC w DIFF 09/15/2024 Ferritin 09/15/2024 Vitamin B12 and Folate 09/15/2024 US abdomen complete 09/15/2024 Celiac Disease Panel 09/15/2024 Next Appt Details Provider Name:Ricky Benjamin , 12/04/2024 01:20:00 PM, [address] [place] [address] , [place], [place], [id number], Insurance Providers Payer Name Payer Address Payer Phone Subscriber Number Group Number Insured Name Patient Relationship to Insured Coverage Start Date Coverage End Date [facility] [address] [place] [address] [phone] [id number] NEIL GARSIA Self - patient is the insured Medical (General) History Medical History History ICD Code Diabetes mellitus--resolved with weight loss HTN-resolved with weight loss Denies [place],DM,CVA,Lung disease,renal dise ase Kidney stones GERD Obesity-lost 100 # after lap band placement in 2011 and has been able to keep it off as of the 08/2024 OV Surgical History Surgery Date(Month/Year) Lap band-Dr. Luu in [place] 2011 Knee surgery 2011
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
[2024-11-01 16:23] VITALS: BP 110/60; PULSE 73; RESP 10; TEMP 36.7; O2SAT 98; BMI 27.5
== END 2024-11-01 16:34 | disposition home or self-care (01) ==
LOC: HO.HMCFM 16:13
PROVIDERS: PCP Family Medicine; Visit Provider Family Medicine
DX: R07.89 Other chest pain (principal); K21.9 Gastro-esophageal reflux disease without esophagitis; D64.9 Anemia, unspecified

== ENCOUNTER 2024-11-02 07:34 | Outpatient (REF) | payer BC, SELFPAY ==
--- NOTE | ~2024-11-02 | US_ITS ---
CLINICAL HISTORY: upper abd pain US abdomen complete with duplex and color Doppler Comparison: Prior relevant studies not available for comparison at the time of this interpretation. Findings: The visualized pancreas, aorta, and inferior vena cava are unremarkable. Liver normal size and echotexture. Right lobe measures 11.7 cm No focal hepatic masses. Common duct 5.0 mm diameter. Physiologic distention of the gallbladder. No gallstones or sludge. No gallbladder wall thickening. No pericholecystic fluid. No sonographic Pino sign. Main portal vein antegrade. Right kidney normal size, 9.7 cm in length. Normal cortical width and echotexture. No solid or cystic renal masses. No nephrolithiasis. No hydronephrosis. Left kidney normal, 10.6 cm in length. Normal cortical width and echotexture. No solid or cystic renal masses. Lower pole cyst with thin septation measuring 2.9 x 2.8 x 2.9 cm incidental benign parapelvic cyst measuring 1.0 x 1.0 x 0.9 cm. Spleen measures 10.2 cm. No splenic masses. No ascites. No lymphadenopathy. Impression: 1. Renal cortical and parapelvic cyst left kidney can be correlated with prior renal ultrasound This document has been electronically signed by: Jett Martinez MD on 11/02/2024 16:29:34
--- OUTSIDE RECORDS SUMMARY | 2024-11-02 07:36 | XMS_ITS | Patient Health Record ---
Author Organization [facility] Address [address] [place] [address] Care Team Providers Care Formulation Technician Name Role Phone Eben Ross Primary Care Provider Ricky Monge Unavailable [phone] Allergies No Known Allergies Reason For Referral [...] Status Risk Notes Problem Colon cancer screening (359053835) Colon cancer screening (Z12.11) Active confirmed Problem Abdominal bloating (507975343) Abdominal bloating (R14.0) Active confirmed Problem Anemia (008822954) Anemia (D64.9) Active confirmed Problem Gastroesophageal reflux disease (552961511) GERD (gastroesopha geal reflux disease) (K21.9) Active confirmed Problem Upper abdominal pain (94975730) Upper abdominal pain (R10.10) Active confirmed Vital Signs Temperature 98.2 degrees Fahrenheit 09/15/2024 Blood pressure diastolic 01 mm Hg 09/15/2024 Height 69 in 09/15/2024 Blood pressure systolic 001 mm Hg 09/15/2024 Weight 185 lbs 09/15/2024 BMI 27.32 kg/m2 09/15/2024 Procedures Procedure Date Ordered Date Performed Result Body Sit e UPPER GI ENDOSCOPY 09/15/2024 N/A COLONOSCOPY 09/15/2024 N/A Encounters Encounter Location Date Provider Diagnosis [facility] [address] [place] [address] 09/15/2024 Ricky Benjamin GERD (gastroesophageal reflux disease) [...] geal reflux disease) (ICD-10 - K21.9) Overall, Neli appears very well. In regard to his [...] Provider Name:Ricky Benjamin , 12/04/2024 01:20:00 PM, [address] [place] [address] , [place], [place], [phone], Insurance Providers Payer Name Payer Address Payer Phone Subscriber Number Group Number Insured Name Patient Relationship to Insured Coverage Start Date Coverage End Date [facility] [address] [place] [address] [id number] NEIL GARSIA Self - patient is the insured Medical (General) History Medical History History ICD Code Diabetes mellitus--resolved with weight loss HTN-resolved with weight loss Denies AR,DM,CVA,Lung disease,renal dise ase Kidney stones GERD Obesity-lost 100 # after lap band placement in 2011 and has been able to keep it off as of the 08/2024 OV Surgical History Surgery Date(Month/Year) Lap band-Dr. Luu in [place] 2011 Knee surgery 2011
[2024-11-02 08:00] LABS: MANUAL DIFF FLAG NO
[2024-11-02 08:25] LABS: Hematocrit 35.0 % (42.0-52.0); Hemoglobin 11.6 g/dl (14.0-18.0); Imm Gran Abs Auto 0.02 X10*3/uL (0.00-0.03); Imm Gran Pct Auto 0.3 % (0.0-0.4); Lymphocytes Absolute Auto 2.0 X10*3/uL (1.2-4.9); Mean Corpuscular HGB Conc 33.1 g/dl (31.0-36.0); Mean Corpuscular Hemoglobin 27.3 pg (27.0-33.0); Mean Corpuscular Volume 82.4 fL (80.0-98.0); NRBC Abs Auto 0.000 X10*3/uL (0.0-0.012); NRBC Pct Auto 0.0 /100WBC (0.0-0.2); Platelet Count 214 X10*3/uL (160-400); Red Blood Count 4.25 X10*6/uL (4.60-5.80); Reticulocytes Absolute 0.048 X10*6/uL (0.026-0.095); White Blood Count 6.0 X10*3/uL (4.8-10.8)
[2024-11-02 08:59] LABS: Alanine Aminotransferase 22 U/L (0-40); Albumin Level 4.5 g/dL (3.5-5.0); Alkaline Phosphatase 58 U/L (39-117); Anion Gap 11 (12-20); Aspartate Amino Transferase 26 U/L (5-37); Blood Urea Nitrogen 13 mg/dL (9-16); Calcium 9.2 mg/dL (8.4-10.2); Carbon Dioxide 27 mmol/L (22-29); Chloride 109 mmol/L (96-108); Estimated Glomerular Filt Rate > 60; Iron 41 mcg/dL (45-160); Percent Iron Saturation 11 % (15-50); Potassium 4.6 mmol/L (3.3-5.1); Sodium 142 mmol/L (135-145); Total Iron Binding Capacity 367 mcg/dL (228-428); Total Protein 7.5 g/dL (6.5-8.0); Unsaturated Iron Binding 326 ug/dL
[2024-11-02 09:26] LABS: Folate 12.7 ng/mL (> or = 4.0); Vitamin B12 348 pg/mL (200-900)
[2024-11-02 09:46] LABS: Ferritin 7 ng/mL (20-250)
== END 2024-11-02 07:35 | disposition home or self-care (01) ==
LOC: HO.US 07:34
PROVIDERS: Absent Provider Family Medicine; PCP Family Medicine; Visit Provider Internal Medicine
DX: R10.10 Upper abdominal pain, unspecified (principal); D64.9 Anemia, unspecified; E53.8 Deficiency of other specified B group vitamins
CPT/HCPCS: 36415; 76700; 80053; 82607; 82728; 82746; 83540; 85025; 85045; 85652

== ENCOUNTER → 2024-11-02 08:01 | Outpatient (BNV) | payer BC, SELFPAY | PROVIDERS: Absent Provider Family Medicine; PCP Family Medicine; Visit Provider Radiology Diagnostic Radiology | DX: N28.1 Cyst of kidney, acquired (principal) | CPT/HCPCS: 76700 ==

== ENCOUNTER 2024-11-27 13:57 | Outpatient (AMB) | payer BC, SELFPAY ==
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
== END 2024-11-27 17:05 | disposition home or self-care (01) ==
LOC: HO.HMCFM 13:57
PROVIDERS: PCP Family Medicine; Visit Provider Family Medicine
DX: D64.9 Anemia, unspecified (principal); R74.01 Elevation of levels of liver transaminase levels

== ENCOUNTER 2024-12-04 10:03 | Day surgery (SDC) | payer BC, SELFPAY ==
--- OUTSIDE RECORDS SUMMARY | 2024-11-08 13:54 | XMS_ITS | Patient Health Record ---
Author Organization [facility] Address [address] [place] [address] Care Team Providers Care Broom Builder Name Role Phone Eben Ross Primary Care Provider Ricky Monge Unavailable [phone] Allergies No Known Allergies Results Component Value Reference Range Notes Complete Blood Count Auto Di ff Reviewed date:11/08/2024 12:12:49 AM Interpretation: Performing Lab:[facility], [address] [place] [phone] Notes/Report: White Blood Count 6.0 4.8-10.8 X10*3/uL Red Blood Count 4.25 4.60-5.80 X10*6/uL Hemoglobin 11.6 14.0-18.0 g/dl Hematocrit 35.0 42.0-52.0 % Mean Corpuscular Volume 82.4 80.0-98.0 fL Mean Corpuscular Hemoglobin 27.3 27.0-33.0 pg Mean Corpuscular HGB Conc 33.1 31.0-36.0 g/dl Red Cell Distribution Width 15.9 11.0-16.0 % Platelet Count 214 160-400 X10*3/uL Mean Platelet Volume 10.5 9.4-12.4 fL Neutrophils Percent Auto 55.1 45-73 % Imm Gran Pct Auto 0.3 0.0-0.4 % Lymphocytes Percent Auto 33.0 20-40 % Monocytes Percent Auto 9.5 2-11 % Eosinophils Percent Auto 1.8 0-4 % Basophils Percent Auto 0.3 0-2 % NRBC Pct Auto 0.0 0.0-0.2 /100WBC Neutrophils Absolute Auto 3.3 2.0-8.3 x10*3/u L Imm Gran Abs Auto 0.02 0.00-0.03 X10*3/uL Lymphocytes Absolute Auto 2.0 1.2-4.9 X10*3/u L Monocytes Absolute Auto 0.6 0.1-1.2 X10*3/uL Eosinophils Absolute Auto 0.1 0.0-0.4 X10*3/u L Basophils Absolute Auto 0.0 0.0-0.2 X10*3/uL NRBC Abs Auto 0.000 0.0-0.012 X10*3/uL Erythrocyte Sedimentation Ra te Reviewed date:11/08/2024 12:11:38 AM Interpretation: Performing Lab:[address] [phone] Notes/Report: Erythrocyte Sedimentation Rate 9 0-15 MM/HR Patients with polycythemia and many hemoglobin abnormalities may have depressed sed rates whereas patients with anemia may have elevated sed rates. RETIC Reviewed date:11/08/2024 12:12:06 AM Interpretation: Performing Lab:[address] [address] Notes/Report: Reticulocytes Absolute 0.048 0.026-0.095 X10*6/ uL Immature Retic Fraction 12.8 2.3-13.4 % Retic HGB Equivalent 28.0 30.0-35.0 pg Reticulocyte Percent 1.1 0.5-1.8 % Comprehensive Met. Panel Reviewed date:11/08/2024 12:11:19 AM Interpretation: Performing Lab:[address] [address] Notes/Report: Sodium 142 135-145 mmol/L Potassium 4.6 3.3-5.1 mmol/L Chloride 109 96-108 mmol/L Carbon Dioxide 27 22-29 mmol/L Anion Gap 11 12-20 Blood Urea Nitrogen 13 9-16 mg/dL Creatinine 1.07 0.5-1.4 mg/dL Estimated Glomerular Filt Rate > 60 Chronic Kidney Disease: Estimated GFR < 60 mL/min/1.73m2 Severe Kidney Disease: Estimated GFR < 15 mL/min/1.73m2 Glucose Random 111 60-115 mg/dL Calcium 9.2 8.4-10.2 mg/dL Bilirubin Total 0.6 0.0-1.0 mg/dL Aspartate Amino Transferase 26 5-37 U/L Alanine Aminotransferase 22 0-40 U/L Total Protein 7.5 6.5-8.0 g/dL Albumin Level 4.5 3.5-5.0 g/dL Alkaline Phosphatase 58 39-117 U/L IRON PROFILE (Not yet revie wed by provider) Interpretation: Performing Lab:[address] [address] Notes/Report: Iron 41 45-160 mcg/dL Total Iron Binding Capacity 367 228-428 mcg/d L Percent Iron Saturation 11 15-50 % Unsaturated Iron Binding 326 Ferritin Reviewed date:11/08/2024 12:09:57 AM Interpretation: Performing Lab:[facility], [address] [place] [phone] Notes/Report: Ferritin 7 20-250 ng/mL Vitamin B12 and Folate Reviewed date:11/08/2024 12:10:37 AM Interpretation: Performing Lab:[facility], [address] [place] [phone] Notes/Report: Vitamin B12 348 200-900 pg/mL NORMAL 200-900 PG/ML INDETERMINATE 160-199 PG/ML DEFICIENT < 160 PG/ML Folate 12.7 > or = 4.0 ng/mL Reference Values: > or = 4.0 ng/mL < 4.0 ng/mL suggests folate deficiency Methotrexate, aminopterin and folinic acid (leucovorin) are chemotherapeutic agents whose molecular structures are similar to folate; therefore, the Hand Surgeon folate assay cannot be used for patients using these drugs. US abdomen complete (Not yet reviewed by provider) Interpretation: Performing Lab: Notes/Report: [address] [place] [address] Ultrasound Report Signed Patient: Neil Garsia Jr MR#: [id number] 17 : 1980 Acct:[id number] Age/Sex: 44 / M ADM Date: 11/02/24 Loc: HO.US Attending Dr: Ricky Benjamin MD Ordering Physician: Ricky Benjamin MD Date of Service: 11/02/24 Procedure(s): US abdomen complete Accession Number(s): [id number] cc: Eben Ross MD; Ricky Benjamin MD CLINICAL HISTORY: upper abd pain US abdomen complete with duplex and color Doppler Comparison: Prior relevant studies not available for comparison at the time of this interpretation. Findings: The visualized pancreas, aorta, and inferior vena cava are unremarkable. Liver normal size and echotexture. Right lobe measures 11.7 cm No focal hepatic masses. Common duct 5.0 mm diameter. Physiologic distention of the gallbladder. No gallstones or sludge. No gallbladder wall thickening. No pericholecystic fluid. No sonographic Pino sign. Main portal vein antegrade. Right kidney normal size, 9.7 cm in length. Normal cortical width and echotexture. No solid or cystic renal masses. No nephrolithiasis. No hydronephrosis. Left kidney normal, 10.6 cm in length. Normal cortical width and echotexture. No solid or cystic renal masses. Lower pole cyst with thin septation measuring 2.9 x 2.8 x 2.9 cm incidental benign parapelvic cyst measuring 1.0 x 1.0 x 0.9 cm. Spleen measures 10.2 cm. No splenic masses. No ascites. No lymphadenopathy. Impression: 1. 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: Reason For Referral No Information Medications Medication [...] Status Risk Notes Problem Colon cancer screening (191943219) Colon cancer screening (Z12.11) Active confirmed Problem Abdominal bloating (337318135) Abdominal bloating (R14.0) Active confirmed Problem Anemia (402627848) Anemia (D64.9) Active confirmed Problem Gastroesophageal reflux disease (708633554) GERD (gastroesopha geal reflux disease) (K21.9) Active confirmed Problem Upper abdominal pain (77887238) Upper abdominal pain (R10.10) Active confirmed Vital Signs Temperature 98.2 degrees Fahrenheit 09/15/2024 Blood pressure diastolic 01 mm Hg 09/15/2024 Height 69 in 09/15/2024 Blood pressure systolic 001 mm Hg 09/15/2024 Weight 185 lbs 09/15/2024 BMI 27.32 kg/m2 09/15/2024 Procedures Procedure Date Ordered Date Performed Result Body Sit e UPPER GI ENDOSCOPY 09/15/2024 N/A COLONOSCOPY 09/15/2024 N/A Encounters Encounter Location Date Provider Diagnosis [facility] [address] [place] [address] 09/15/2024 Ricky Benjamin GERD (gastroesophageal reflux disease) [...] IBC (FE) 09/15/2024 CBC w DIFF 09/15/2024 IRON PROFILE 11/02/2024 Ferritin 09/15/2024 Vitamin B12 and Folate 09/15/2024 US abdomen complete 11/02/2024 US abdomen complete 09/15/2024 Celiac Disease Panel 09/15/2024 Next Appt Details Provider Name:Ricky Silverio Sourav , 12/04/2024 01:20:00 PM, [address] [place] [address] , [place], [place], [phone], Insurance Providers Payer Name Payer Address Payer Phone Subscriber Number Group Number Insured Name Patient Relationship to Insured Coverage Start Date Coverage End Date [facility] [address] [place] [address] [id number] NEIL GARSIA Self - patient is the insured Medical (General) History Medical History History ICD Code Diabetes mellitus--resolved with weight loss HTN-resolved with weight loss Denies CT,DM,CVA,Lung disease,renal dise ase Kidney stones GERD Obesity-lost 100 # after lap band placement in 2011 and has been able to keep it off as of the 08/2024 OV Surgical History Surgery Date(Month/Year) Lap band-Dr. Luu in [place] 2011 Knee surgery 2011
[2024-11-30 16:02] VITALS: BMI 27.3
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
[2024-12-04 10:13] VITALS: BP 119/66; PULSE 62; RESP 12; TEMP 36.3; O2SAT 100; BMI 26.0
[2024-12-04] MEDS: Lactated Ringers 1,000 ML 100 ML IVCONT (10:24)
[2024-12-04 12:53] VITALS: BP 120/63; PULSE 67; RESP 16; TEMP 36.2; O2SAT 100
--- NOTE | 2024-12-04 12:59 | PM.OP ---
Brief Operative Note Date of Service: 12/04/24 Pre-op diagnosis: GERD, Screening Post-op diagnosis: other (Hiatal hernia, Internal hemorrhoids) Procedure: EGD with biopsies, Colonoscopy to the cecum Surgeon: Ricky Benjamin MD Anesthesia: MAC Was an Application Development Specialist used for this Procedure?: No Estimated blood loss (mL): 2.0 Pathology: other (A. Gastric antrum B. EG Junction at 38cm) Condition: stable Disposition: PACU
[2024-12-04 13:05] VITALS: BP 123/63; PULSE 69; RESP 16; TEMP 36.2; O2SAT 100
--- NOTE | 2024-12-04 14:45 | OP_ITS ---
DATE OF SERVICE: 12/04/2024 SURGEON: Ricky Benjamin MD INDICATIONS: The patient presents for evaluation of gastroesophageal reflux and colorectal cancer screening. Full consent has been obtained from him for this, including risks of bleeding and perforation. PREOPERATIVE DIAGNOSIS: POSTOPERATIVE DIAGNOSIS: Gastroesophageal reflux, colorectal cancer screening, hiatal hernia, reflux esophagitis, gastritis, internal hemorrhoids. PROCEDURE PERFORMED: Esophagogastroduodenoscopy with biopsies, and colonoscopy to the cecum. ESTIMATED BLOOD LOSS: COMPLICATIONS: ANESTHESIA: Medication used, monitored anesthesia care. ASSISTANTS: SPECIMENS: PREOPERATIVE DIAGNOSES: Gastroesophageal reflux, colorectal cancer screening. DESCRIPTION OF PROCEDURE: The patient was placed in the left lateral decubitus position. The Olympus video gastroscope was passed in the posterior oropharynx and upper esophagus under direct vision. The scope was passed slowly to the distal esophagus. The gastroesophageal junction appeared at 38 cm. There was evidence of some reflux with linear streaks of erythema and edema, but no erosions or ulceration. There was no definitive evidence of Rae's mucosa. The scope entered the stomach. There was a moderate-sized hiatal hernia with some looping of the scope within it. I was able to advance to the pylorus, and the duodenum was cannulated to the descending portion. The duodenum including the bulb and duodenal folds appeared normal without mass or ulceration. The scope was withdrawn back in the stomach. The gastric antrum and body had some areas of erythema and edema, but no erosions or ulceration. There was good peristalsis. Biopsies were obtained from the gastric antrum. The scope was retroflexed visualizing the proximal stomach carefully which appeared normal other than the visualized hiatal hernia. There was no mass or ulceration. The scope was straightened. The mucosa within the hiatal hernia appeared normal. The scope was withdrawn back in the esophagus. Biopsies were obtained in the distal esophagus at the EG junction at 38 cm. Proximal to this, the esophageal mucosa appeared normal. The scope was withdrawn from the patient. He was turned around for the colonoscopy. The digital rectal exam revealed no abnormalities. The Olympus video pediatric colonoscope was entered into the rectum and advanced easily to the cecum. Once in the cecum, I did identify normal-appearing cecal pouch with appendiceal orifice and a normal-appearing ileocecal valve. The entire cecum and ileocecal valve appeared normal. The scope was slowly withdrawn assessing all mucosal surfaces carefully. Preparation was excellent. I did not visualize any sign of polyps, colitis, nor angiodysplasia. There was an occasional diverticulum in the sigmoid colon. In the rectum, scope was retroflexed visualizing internal hemorrhoids, but no other pathology. The rectal mucosa appeared normal. The scope was straightened and withdrawn from the patient. He tolerated both procedures well and was returned to the recovery area in stable condition. IMPRESSION: 1. Hiatal hernia, gastroesophageal reflux. 2. Gastritis. 3. Internal hemorrhoids. PLAN: The results of the biopsies will be checked. He will continue his daily omeprazole for his reflux. Given the size of the hernia, I will arrange for an outpatient barium swallow and upper GI series to rule out any component of a paraesophageal hernia. I would recommend a repeat colonoscopy in 10 years for further screening given today's negative exam and negative family history. His recent labs did show an Iron deficiency anemia. I was unaware of that until after the procedures and therefore duodenal biopsies were not obtained to rule out celiac disease with Iron malabsorption. I shall check eventual celiac disease labs.If they are positive we would want to consider a repeat upper endoscopy for duodenal biopsies. He was advised to start his Iron therapy for the anemia. As far as his abdominal bloating, gas, cramps, etc, he reports that this has all improved with a avoidance of Lactose as we discussed at the office visit. I did advise him to continue that dietary restriction. An abdominal ultrasound was negative for gallstones or other significant findings that would account for his GI symptoms. He will be seen in the office for a follow up visit. MD JORDON Giang/FABIANA / [id number]
== END 2024-12-04 13:45 | disposition home or self-care (01) ==
PROVIDERS: PCP Family Medicine; Visit Provider Internal Medicine
PROC: (CPT 45378; principal; 2024-12-04 11:30)
DX: Z12.11 Encounter for screening for malignant neoplasm of colon (principal); K57.30 Diverticulosis of large intestine without perforation or abscess without bleeding; K64.8 Other hemorrhoids; K21.9 Gastro-esophageal reflux disease without esophagitis; K20.80 Other esophagitis without bleeding; K29.60 Other gastritis without bleeding; K44.9 Diaphragmatic hernia without obstruction or gangrene; D64.9 Anemia, unspecified; Z79.899 Other long term (current) drug therapy; Z86.79 Personal history of other diseases of the circulatory system; Z86.39 Personal history of other endocrine, nutritional and metabolic disease; Z98.84 Bariatric surgery status
CPT/HCPCS: 45378; 43239; 88305; 88313; 88342; J2704